=== PATIENT | male | born 1975 ===

== ENCOUNTER 2017-01-14 00:36 | Emergency (ER) | payer BC ==
[2017-01-14 00:48] VITALS: BP 129/94
[2017-01-14] MEDS ORDERED: predniSONE 20 MG Tab PO STA (01:07)
--- NOTE | 2017-01-14 01:14 | EDM.PDOC ---
ED HPI GENERAL MEDICAL PROBLEM - General Chief Complaint: Skin Complaint Stated Complaint: poss rash on hands Time Seen by Provider: 01/14/17 00:39 Source of Information: Reports: Patient, Family (), RN Notes Reviewed History Limitations: Reports: No Limitations - History of Present Illness INITIAL COMMENTS - FREE TEXT/NARRATIVE: The patient states that he developed bilateral hand pruritus and swelling around 19:30. He has subsequently applied hand lotion, without relief of symptoms. No prior similar symptoms. 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 He admits, however, that he was working in a shop, where he was exposed to antifreeze and break cleaning fluid this past 01/07/2017, 01/10/2017, and Tuesday , 01/11/2017. The patient is allergic to latex, but denies recent exposure to latex. He also denies recently eating kiwi or avocado. The patient does not have a PCP. - Related Data Allergies Allergy/AdvReac Type Severity Reaction Status Date / Time amoxicillin Allergy Other Verified 01/14/17 00:46 latex Allergy Hives Verified 01/14/17 00:49 morphine Allergy Other Verified 01/14/17 00:46 Home Meds: Home Meds Lisinopril [Prinivil] 20 mg PO DAILY 01/14/17 [History] Prednisone [IJD: predniSONE] 20 mg PO WITHBREAKFAST #4 tab 01/14/17 [Rx] atorvaSTATin Calcium [Atorvastatin Calcium] 1 tab PO DAILY 01/14/17 [History] Past Medical History HEENT History: Reports: Impaired Vision Cardiovascular History: Reports: High Cholesterol, Hypertension Endocrine/Metabolic History: Reports: Obesity/BMI 30+, Other (See Below) ( Prediabetes) - Past Surgical History HEENT Surgical History: Reports: Oral Surgery ([place] teeth extraction) Neurological Surgical History: Reports: Lumbar Spine (Lumbar microdiscectomy) Musculoskeletal Surgical History: Reports: ORIF (right ankle) Social & Family History - Family History Family Medical History: Noncontributory - Tobacco Use Smoking Status *Q: Former Smoker Years of Tobacco use: 14 Packs/Tins Daily: 2 Month Tobacco Last Used: Quit Mar 2003 - Caffeine Use Caffeine Use: Reports: None - Alcohol Use Alcohol Use History: Yes Alcohol Use Frequency: Socially - Recreational Drug Use Recreational Drug Use: No - Living Situation & Occupation Living situation: Reports: , with Spouse 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) ED ROS GENERAL - Review of Systems Review Of Systems: See Below Constitutional: Reports: No Symptoms HEENT: Reports: No Symptoms Respiratory: Reports: No Symptoms Cardiovascular: Reports: No Symptoms Endocrine: Reports: No Symptoms GI/Abdominal: Reports: No Symptoms : Reports: No Symptoms Musculoskeletal: Reports: No Symptoms Skin: Reports: No Symptoms Neurological: Reports: No Symptoms Psychiatric: Reports: No Symptoms Hematologic/Lymphatic: Reports: No Symptoms Immunologic: Reports: No Symptoms ED EXAM, SKIN/RASH Exam: See Below Exam Limited By: No Limitations General Appearance: Alert, WD/WN, Mild Distress (The patient is constantly rubbing his hands) Extremities: Other (Mild swelling and erythema to both hands. This does not extend above the wrist. No visible lesions, such as vesicles,, and no abrasions or excoriations.) Skin: Warm, Dry, Intact Course - Vital Signs Last Recorded V/S: Last Vital Signs Temp 36.3 C 01/14/17 00:42 Pulse 94 01/14/17 00:42 Resp 18 01/14/17 00:42 BP 129/94 H 01/14/17 00:42 Pulse Ox - Orders/Labs/Meds Meds: Medications Discontinued Medications Generic Name Dose Route Start Last Admin Trade Name Marcia PRRajendra Reason Stop Dose Admin Prednisone 60 mg 01/14/17 01:07 01/14/17 01:14 Prednisone PO 01/14/17 01:08 60 mg ONETIME STA Administration - Re-Assessments/Exams Free Text/Narrative Re-Assessment/Exam: 01/14/17 01:08 The patient has pruritus and swelling to both his hands, but none elsewhere. I suspect that this is a contact dermatitis, likely due to a delayed reaction to a chemical that he was exposed to either 01/07/17, 01/10/17/, or 01/11/17. Accordingly, I have started the patient on oral prednisone, and will e- prescribe an additional 4 day course. I will refer him to Dr. Marie, should his symptoms either fail to improve or return after the prednisone course. Departure - Departure Time of Disposition: 01:09 Disposition: Home, Self-Care 01 Condition: Good Clinical Impression: Contact dermatitis - Discharge Information Prescriptions: Prednisone [IJD: predniSONE] 20 mg PO WITHBREAKFAST #4 tab Instructions: Contact Dermatitis, [id number] Referrals: PCP,None [Primary Care Provider] - Ad Marie [Physician] - Forms: ED Department Discharge Additional Instructions: You were seen in the emergency room for itchiness and swelling of both of her hands. Based on your history and physical examination, your symptoms are MOST LIKELY due to contact dermatitis from a chemical that you were exposed to earlier this week. You have been started on the steroid prednisone. Take 1 tablet with breakfast starting tomorrow, 01/15/2017. Heat will make the itchiness worse, so try to keep your hands as cool as possible. You may apply ice packs. Try not to scratch. If your symptoms either fail to improve, or improved, but come back after the prednisone course, please follow-up with Dr. Marie in the clinic. If any other problems, please do not hesitate to return to the ER.
== END 2017-01-14 01:18 | disposition home or self-care (01) ==
LOC: JD.ED 00:36
DX: L25.9 Unspecified contact dermatitis, unspecified cause (principal); I10 Essential (primary) hypertension; E78.00 Pure hypercholesterolemia, unspecified; Z87.891 Personal history of nicotine dependence; Z79.899 Other long term (current) drug therapy; Z88.5 Allergy status to narcotic agent; Z88.1 Allergy status to other antibiotic agents; Z91.040 Latex allergy status
CPT/HCPCS: 99283; A9270